=== PATIENT | male | born 1945 | race American Indian/Alaskan Native ===

== ENCOUNTER 2016-08-29 15:21 | Emergency (ER) | payer OTHER, MEDICARE, BC ==
[2016-08-29 19:50] VITALS: BP 140/78
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
== END 2016-08-29 20:16 | disposition home or self-care (01) ==
LOC: ED 15:21
DX: M25.551 Pain in right hip (principal); I10 Essential (primary) hypertension; E11.9 Type 2 diabetes mellitus without complications; V49.49XA Driver injured in collision with other motor vehicles in traffic accident, initial encounter; Y93.9 Activity, unspecified; Y92.9 Unspecified place or not applicable; Y99.9 Unspecified external cause status
CPT/HCPCS: 99283